=== PATIENT | male | born 1990 | race Caucasian/White ===

== ENCOUNTER 2024-07-04 17:07 | Emergency (ER) | payer SELFPAY ==
[~2024-07-04] VITALS: Ht 177.8 cm; Wt 72.5 kg
[2024-07-04] VITALS (7 sets, daily range): BP systolic 108–122; BP diastolic 66–74
[2024-07-04] MEDS ORDERED: SODIUM CHLORIDE 0.9% 1,000 ML IV ONE (17:20)
[2024-07-04 17:53] LABS: BASO% 0.2 % (0-3); EOS% 0.1 % (0-8); HEMATOCRIT 41.2 % (39.0-50.0); HEMOGLOBIN 14.2 g/dl (14.0-18.0); IMMATURE GRANULOCYTES 0.7 % (0.0-5.0); LYMPH% 18.5 % (15-41); MEAN CELL VOLUME 86.2 fL CALC (80.0-100.0); MEAN CORPUSCULAR HGB 29.7 pG CALC (26.0-32.0); MEAN CORPUSCULAR HGB CONC 34.5 g/dL CAL (32.0-36.0); MONO% 4.7 % (2-13); NEUT# 6.73 thou/uL (1.82-7.42); NEUT% 75.8 % (42-76); RED BLOOD COUNT 4.78 mill/uL (4.70-6.10); RED CELL DISTRI WIDTH 13.1 % (11.5-15.5)
[2024-07-04] MEDS ORDERED: KETOROLAC TROMETHAMINE 30 MG/ML SDV IV ONE (18:00)
[2024-07-04 18:10] LABS: ALBUMIN 4.3 g/dL (3.2-5.0); BILIRUBIN, TOTAL 0.7 mg/dL (0.2-1.3); CREATININE 1.1 mg/dL (0.7-1.3); POTASSIUM 3.8 mmol/l (3.5-5.1); TOTAL PROTEIN 7.1 g/dL (6.3-8.2)
[2024-07-04 18:12] LABS: PROTHROMBIN TIME 10.4 SECONDS (9.0-12.5)
[2024-07-04] MEDS ORDERED: SYNTHROID25 MCG PO (18:22)
[2024-07-04] MEDS ORDERED: traMADol HCL 50 MG/TAB PO ONE (20:05)
[2024-07-04] MEDS ORDERED: IBUPROFEN 600 MG/TAB PO ONE (20:05)
[2024-07-04] MEDS ORDERED: ACETAMINOPHEN 500 MG TAB PO ONE (20:05)
[2024-07-04] MEDS ORDERED: TRAMADOL HYDROC50 M1 PO (20:09)
[2024-07-04] MEDS ORDERED: MOTRIN800 MG PO (20:09)
== END 2024-07-04 20:37 | disposition home or self-care (01) | DRG 999 ==
LOC: ED 17:07
PROVIDERS: Family Medicine
DX: S20.411A Abrasion of right back wall of thorax, initial encounter (principal); S06.9X1A Unspecified intracranial injury with loss of consciousness of 30 minutes or less, initial encounter; S70.211A Abrasion, right hip, initial encounter; S80.811A Abrasion, right lower leg, initial encounter; V86.55XA Driver of 3- or 4- wheeled all-terrain vehicle (ATV) injured in nontraffic accident, initial encounter; F10.129 Alcohol abuse with intoxication, unspecified; Y90.4 Blood alcohol level of 80-99 mg/100 ml
CPT/HCPCS: Q9967